=== PATIENT | male | born 1985 | race Two or more races ===

== ENCOUNTER 2019-05-02 00:46 | Emergency (ER) | payer MEDICAID, OTHER ==
[~2019-05-02] VITALS: Ht 177.8 cm; Wt 77.1 kg
[2019-05-02 01:07] VITALS: BP 140/72
[2019-05-02] MEDS ORDERED: PENICILLIN G BENZATHINE 2.4 MMU/4 ML ML IM ONE ×2 (01:48→02:00)
== END 2019-05-02 01:55 | disposition home or self-care (01) ==
LOC: ER 00:48
DX: A53.9 Syphilis, unspecified (principal); F17.200 Nicotine dependence, unspecified, uncomplicated; Z88.8 Allergy status to other drugs, medicaments and biological substances
CPT/HCPCS: 96372; 99283; J0558

== ENCOUNTER 2021-04-15 15:24 | Emergency (ER) | payer OTHER ==
[~2021-04-15] VITALS: Ht 177.8 cm; Wt 77.1 kg
--- NOTE | 2021-04-15 15:24 | NUR ---
PT BIB SELF C/O L THUMB ABSCESS FOR 1 WEEK. PT IS AAOX4, NOT IN RESPRIATORY DISTRESS, V/S STABLE, KEPT RESTED AND COMFORTABLE. WILL CONTINUE TO MONITOR.
--- NOTE | 2021-04-15 15:45 | NUR ---
PT SEEN AND EXAMINED BY .
--- NOTE | 2021-04-15 15:50 | NUR ---
CALLED DR. COYNE NOT AVAILABLE
--- NOTE | 2021-04-15 15:50 | NUR ---
IV LINE ESTABLISHED BLOOD DRAWN AND SENT TO LAB.
--- NOTE | 2021-04-15 15:58 | NUR ---
CALLED DR. LINDSAY LEFT MSG
[2021-04-15 15:59] LABS: BASOPHILS % (AUTO) 0.6 % (0.0-2.0); EOSINOPHILS % (AUTO) 0.7 % (0.0-6.0); HEMATOCRIT 42 % (39-51); HEMOGLOBIN 14.5 g/dL (13.5-17.5); LYMPHOCYTES # (AUTO) 0.9 K/uL (0.8-4.8); LYMPHOCYTES % (AUTO) 20.8 % (20.0-44.0); MEAN CORPUSCULAR HGB CONC 34 g/dl (31.0-36.0); MEAN CORPUSCULAR VOLUME 86 fL (80-96); MONOCYTES # (AUTO) 0.3 K/uL (0.1-1.30); MONOCYTES % (AUTO) 7.7 % (2.0-12.0); NEUTROPHILS # (AUTO) 2.9 K/uL (1.8-8.9); NEUTROPHILS % (AUTO) 70.2 % (43.0-81.0); PLATELET COUNT (AUTO) 343 K/uL (150-450); RED BLOOD CELL COUNT(AUTO) 4.91 MIL/uL (4.5-6.0); WHITE BLOOD COUNT (AUTO) 4.1 K/uL (4.3-11.0)
[2021-04-15] MEDS ORDERED: VANCOMYCIN 1.5 GM in IV D5W 500 ML IV ONE (16:00)
[2021-04-15] MEDS ORDERED: PIPERACILLIN /TAZOBACTAM 3.375 G in IV D5W 50 ML IV ONE (16:00)
--- NOTE | 2021-04-15 16:02 | NUR ---
CALLED DR. VILLALPANDO ----- [phone] ROGER
[2021-04-15 16:05] LABS: CALCIUM, SERUM 8.7 mg/dL (8.5-10.1); POTASSIUM 3.9 mmol/L (3.5-5.1)
--- NOTE | 2021-04-15 16:09 | NUR ---
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
--- NOTE | 2021-04-15 16:18 | NUR ---
DEEP RECIO SPOKE WITH JACQUE FAXED FACE SHEET [phone]
[2021-04-15] MEDS ORDERED: AMOX-430 PO (16:34)
[2021-04-15] MEDS ORDERED: ONDANSETRON HCL/PF 4 MG/2 ML VIAL ONE (16:34)
[2021-04-15] MEDS ORDERED: CLIN300C12 PO (16:34)
--- NOTE | 2021-04-15 17:00 | NUR ---
[facility] [phone]
--- NOTE | 2021-04-15 17:43 | NUR ---
JACQUE FROM [facility] CALLED. CASE DECLINED DUE TO CAPACITY AT THIS TIME.
--- NOTE | 2021-04-15 17:46 | NUR ---
CALLED [facility] [phone]
--- NOTE | 2021-04-15 18:10 | NUR ---
IV removed. Catheter intact and site benign. Pressure and 4x4 applied to site. No bleeding noted. Patient does not wish to proceed with medical care recommended by Dr. Ledezma. Patient given information related to possible complications, up to and including , which could occur as a result of leaving the hospital at this time. Patient verbalizes understanding of risks involved due to leaving against medical advice. Patient has signed AMA form.
[2021-04-15 18:11] VITALS: BP 122/73
== END 2021-04-15 18:12 | disposition left against medical advice (07) ==
LOC: ER 15:28
DX: M65.842 Other synovitis and tenosynovitis, left hand (principal); F17.200 Nicotine dependence, unspecified, uncomplicated; Z88.8 Allergy status to other drugs, medicaments and biological substances; Z79.899 Other long term (current) drug therapy
CPT/HCPCS: 36415; 73130; 80048; 85025; 85652; 96365; 96368; 99284; J2405; J2543; J3370; J7060 ×2

== ENCOUNTER 2023-09-21 17:17 | Emergency (ER) | payer OTHER ==
[~2023-09-21] VITALS: Ht 175.3 cm; Wt 87.3 kg
[~2023-09-21 17:17] MED LIST: AMOX-430 PO; CLIN300C12 PO
[2023-09-21 17:29] VITALS: BP 128/72; TEMP 98.3
[2023-09-21] MEDS ORDERED: SULF1TAB48 PO (17:47)
[2023-09-21 17:58] VITALS: O2SAT 100
== END 2023-09-21 17:59 | disposition home or self-care (01) ==
LOC: ER 17:26
DX: L03.314 Cellulitis of groin (principal); F17.200 Nicotine dependence, unspecified, uncomplicated; Z88.8 Allergy status to other drugs, medicaments and biological substances

== ENCOUNTER 2024-06-03 22:01 | Emergency (ER) | payer OTHER ==
[~2024-06-03] VITALS: Ht 167.6 cm; Wt 71.7 kg
[~2024-06-03 22:01] MED LIST changes: +SULF1TAB48 PO
[2024-06-03] MEDS ORDERED: TDAP [DIPH/PERTUSSIS/TET] 0.5 ML VIAL IM ONE (22:52)
[2024-06-03] MEDS ORDERED: ONDANSETRON 4 MG TAB.RAPDIS ONE (22:52)
[2024-06-03] MEDS ORDERED: MORPHINE SULFATE INJ 4 MG/ML DISP.SYRIN ONE (22:52)
[2024-06-03] MEDS: MORPHINE SULFATE INJ 2 MG/ML DISP.SYRIN IM ONE (22:53)
[2024-06-03] MEDS: ONDANSETRON 4 MG TAB.RAPDIS SL ONE (22:54)
[2024-06-03] MEDS: TDAP [DIPH/PERTUSSIS/TET] 0.5 ML VIAL IM ONE (22:54)
[2024-06-04] MEDS ORDERED: ACET-907 PO (01:21)
[2024-06-04 01:57] VITALS: BP 132/88; TEMP 98.3; O2SAT 100
== END 2024-06-04 01:57 | disposition home or self-care (01) ==
LOC: ER 22:08
DX: S62.636A Displaced fracture of distal phalanx of right little finger, initial encounter for closed fracture (principal); S29.012A Strain of muscle and tendon of back wall of thorax, initial encounter; S83.8X2A Sprain of other specified parts of left knee, initial encounter; S83.8X1A Sprain of other specified parts of right knee, initial encounter; S60.221A Contusion of right hand, initial encounter; S20.219A Contusion of unspecified front wall of thorax, initial encounter; S09.8XXA Other specified injuries of head, initial encounter; R51.9 Headache, unspecified; F17.200 Nicotine dependence, unspecified, uncomplicated; V03.10XA Pedestrian on foot injured in collision with car, pick-up truck or van in traffic accident, initial encounter; Y93.89 Activity, other specified; Y92.89 Other specified places as the place of occurrence of the external cause; Y99.8 Other external cause status
CPT/HCPCS: 29130; 70450; 71045; 72125; 72128; 73130; 73140; 73560; 90471; 90715; 96372; 99285; J2270; Q0162